=== PATIENT | male | born 1930 | race Caucasian/White ===

== ENCOUNTER → 2017-05-18 | Day surgery (SDC) | payer MEDICARE ==
--- NOTE | 2017-05-15 11:53 | Diagnostic Imaging Report ---
PROCEDURE:CHEST 2 VIEWS TECHNIQUE:PA and lateral chest totaling 3 radiographs INDICATION:Preoperative evaluation for bladder surgery COMPARISON:None. FINDINGS: The lungs are symmetrically hyperinflated. Bilateral lower lobe interstitial thickening without focal air space disease. No pleural effusion. Enlarged cardiac silhouette with postoperative sequela of sternotomy and valve replacement. Diffuse osteopenia with mid thoracic vertebral body compression fracture and associated kyphotic deformity. CONCLUSION: 1. Hyperinflation consistent with air trapping from COPD. 2. Bilateral lower lobe interstitial opacity, likely fibrosis/interstitial scar. 3. Age-indeterminate mid thoracic vertebral body compression fracture with associated kyphotic deformity. Dictated by: Waldemar Ceja M.D. on 05/15/2017 at 12:02 Electronically approved by: Waldemar Ceja M.D. on 05/15/2017 at 12:02
[2017-05-15 11:56] LABS: BASOPHILS % 0.5 % (0.0-1.0); EOSINOPHILS # (AUTO) 0.1 (0.0-0.4); EOSINOPHILS % 1.5 % (0.0-6.0); HEMATOCRIT 38.1 % (38.2-49.6); HEMOGLOBIN 12.6 g/dL (14.0-18.0); LYMPHOCYTES # (AUTO) 1.3 (1.0-3.2); LYMPHOCYTES % 20.3 % (18.0-39.1); MEAN CORPUSCULAR HEMOGLOBIN 35.7 pg (28-32); MEAN CORPUSCULAR HGB CONC 33.1 g/dL (31-35); MEAN CORPUSCULAR VOLUME 107.9 fL (81-99); MONOCYTES # (AUTO) 0.7 (0.2-0.8); MONOCYTES % 11.4 % (4.4-11.3); NEUTROPHILS # (AUTO) 4.1 (2.1-6.9); NEUTROPHILS % 65.8 % (38.7-80.0); PLATELET COUNT 252 x10e3/uL (140-360); RED BLOOD COUNT 3.53 x10e6/uL (4.3-5.7); RED CELL DISTRIBUTION WIDTH 13.9 % (11.7-14.4)
[~2017-05-18] MED LIST: ASPIR 8181 MG PO; BENZONATATE100 MG PO; FINASTERIDE5 MG PO; FLOMAX0.4 MG PO; HYDROCODON-ACE1 EA11 PO; IOPAMIDOL 610MG/1ML 300 MG/ML VIAL IV ONE; LIDOCAINE HCL 2% LOCAL INJ 5 ML SDV VIAL INJ ONE; METAMUCIL PLUS1 EACH PO; METOPROLOL TART25 MG PO; MULTI-VITAMIN1 EACH PO; PROPOFOL IV EMULSION 10 MG/ML 20 ML VIAL ONE; TYLENOL EXTRA500 MG PO; ZOLOFT50 MG PO
--- NOTE | 2017-05-21 10:35 | Operative Report ---
DATE OF PROCEDURE: May 18, 2017 PREOPERATIVE DIAGNOSIS: Large bladder stone, greater than 3 cm. POSTOPERATIVE DIAGNOSIS: Large bladder stone, greater than 3 cm. PROCEDURE: Cystolitholapaxy of a large stone, greater than 2.5 cm. ANESTHESIA: General. ESTIMATED BLOOD LOSS: Minimal. COMPLICATIONS: None. INDICATIONS FOR PROCEDURE: Mr. Fraser is a very pleasant 86-year-old male with an enlarged prostate and a large bladder stone. He and I had an extensive discussion about the alternatives, risks, and benefits including doing nothing, cystoscopy with litholapaxy, and open surgery. He voiced understanding of options, alternatives, risks and benefits and elected to proceed. PROCEDURE IN DETAIL: After informed consent was obtained, the patient was taken to the operative suite, placed supine on the operating table, and underwent general anesthesia by the anesthesia service. He was placed in the dorsal lithotomy position and sterilely prepped and draped in the standard fashion for cystoscopy. A 22.5-Mohawk cystoscope was inserted per urethra. Normal urethra was noted. Panendoscopy revealed no tumors and no stones. Both ureteral orifices were in normal anatomic configuration and position. There was a very greater than 3 cm bladder stone seen. Utilizing the 550-micron laser, the stone was broken into multiple small fragments. The bladder was drained. The patient was awakened from anesthesia and transported to the recovery room in excellent condition. Job#: [id number] PAT cc:Javier Baires MD
== END | disposition home or self-care (01) ==
LOC: OR 08:56
PROVIDERS: ATTEND Urology
DX: N21.0 Calculus in bladder (principal); N40.0 Benign prostatic hyperplasia without lower urinary tract symptoms; R80.9 Proteinuria, unspecified; N20.0 Calculus of kidney; N28.1 Cyst of kidney, acquired; C85.90 Non-Hodgkin lymphoma, unspecified, unspecified site; I44.0 Atrioventricular block, first degree; I44.7 Left bundle-branch block, unspecified; I10 Essential (primary) hypertension; J44.9 Chronic obstructive pulmonary disease, unspecified; K44.9 Diaphragmatic hernia without obstruction or gangrene; F32.9 Major depressive disorder, single episode, unspecified; F41.9 Anxiety disorder, unspecified; Z01.810 Encounter for preprocedural cardiovascular examination; Z01.812 Encounter for preprocedural laboratory examination; Z01.818 Encounter for other preprocedural examination; Z79.82 Long term (current) use of aspirin; Z68.30 Body mass index [BMI] 30.0-30.9, adult; Z85.038 Personal history of other malignant neoplasm of large intestine; Z90.49 Acquired absence of other specified parts of digestive tract; Z87.891 Personal history of nicotine dependence; Z84.1 Family history of disorders of kidney and ureter; Z84.2 Family history of other diseases of the genitourinary system
CPT/HCPCS: 36415; 52318; 71046; 85025; 88300; 93005; J2001; Q9967